=== PATIENT | male | born 1955 | race Two or more races ===

== ENCOUNTER 2021-04-24 08:58 | Emergency (ER) | payer SELFPAY ==
[~2021-04-24] VITALS: Ht 170.2 cm; Wt 87.1 kg
[2021-04-24 09:14] VITALS: BP 145/77
== END 2021-04-24 11:00 | disposition home or self-care (01) ==
LOC: ER 08:58
DX: H60.92 Unspecified otitis externa, left ear (principal); I10 Essential (primary) hypertension
CPT/HCPCS: 70486